=== PATIENT | male | born 1960 | race African-American/Black ===

== ENCOUNTER 2021-03-08 08:20 | Outpatient (CLI) | payer OTHER, SELFPAY ==
--- NOTE | ~2021-03-08 | NM_ITS ---
EXAMINATION: NM bone scan whole body DATE: 03/08/2021 13:17 INDICATION: Right hip pain. TECHNIQUE: 22.3 mCi Tc-99m HDP was administered intravenously. Delayed whole-body scintigrams were o btained. COMPARISON: Chest 2 views 07/26/2014 FINDINGS: There is a right hip arthroplasty. There is no abnormal increased activity adjacent to the arthroplasty. There is joint-centered increased activity in the shoulders, sternoclavicular joints, k nees, and feet without radiographic comparison, likely osteoarthritis. IMPRESSION: 1. Normal right hip arthroplasty. Reviewed, dictated and finalized at location A.
[2021-03-08 10:41] LABS: CRP 0.8 mg/dL (<1.0)
[2021-03-08 11:37] LABS: Erythrocyte Sedimentation Rate 31 mm/hr (0-20)
== END 2021-03-08 08:21 | disposition home or self-care (01) ==
PROVIDERS: Visit Provider Physician Assistant Surgical
DX: M16.11 Unilateral primary osteoarthritis, right hip (principal)
CPT/HCPCS: 36415; 78306; 85652; 86140; A9561

== ENCOUNTER 2021-03-25 12:57 | Outpatient (CLI) | payer OTHER, SELFPAY ==
--- NOTE | ~2021-03-25 | CT_ITS ---
EXAMINATION: CT hip RT wo con DATE: 03/25/2021 13:15 INDICATION: Right hip osteoarthritis. TECHNIQUE: Computed tomography (CT) of the right hip was performed without intravenous contrast. Auto mated exposure control and iterative reconstruction technique were employed. The dose-length product was 1085.07 mGy-cm. COMPARISON: Bone scan 03/08/2021 FINDINGS: There is prominent fat in the right inguinal canal which may be a hernia. There is a total right hip arthroplasty in near-anatomic alignment. No fracture. No periprosthetic lucency to suggest loosening or infection. There is severe lumbar spondylosis. IMPRESSION: 1. Total right hip arthroplasty in near-anatomic alignment. Reviewed, dictated and finalized at location A.
== END 2021-03-25 12:58 | disposition home or self-care (01) ==
PROVIDERS: Visit Provider Physician Assistant Surgical
DX: M16.11 Unilateral primary osteoarthritis, right hip (principal)
CPT/HCPCS: 73700